=== PATIENT | male | born 1950 | race Caucasian/White ===

== ENCOUNTER 2018-05-30 01:46 | Outpatient (CLI) | payer OTHER, SELFPAY ==
[2018-05-30 12:38] LABS: Anion Gap 2.2 mmol/L (3-11); BUN 17 mg/dL (7-18); CO2 30.8 mmol/L (21.0-32.0); CREATININE 0.79 mg/dL (0.70-1.30); Calcium 8.8 mg/dL (8.5-10.1); Chloride 102 mmol/L (98-107); Glucose 148 mg/dL (70-100); Potassium 4.8 mmol/L (3.5-5.1); Sodium 135 mmol/L (136-145)
[2018-05-30 12:58] LABS: Hemoglobin A1C 7.1 % (4.5-6.2)
== END 2018-05-30 02:06 ==
PROVIDERS: PCP Family Medicine; Visit Provider Family Medicine
DX: E11.9 Type 2 diabetes mellitus without complications (principal); I10 Essential (primary) hypertension
CPT/HCPCS: 36415; 80048; 83036

== ENCOUNTER 2018-08-27 01:25 | Outpatient (CLI) | payer OTHER, SELFPAY ==
[2018-08-27 12:03] LABS: Hemoglobin A1C 7.1 % (4.5-6.2)
== END 2018-08-27 01:45 ==
PROVIDERS: PCP Family Medicine; Visit Provider Family Medicine
DX: E11.9 Type 2 diabetes mellitus without complications (principal)
CPT/HCPCS: 36415; 83036

== ENCOUNTER 2018-12-03 03:03 | Outpatient (CLI) | payer OTHER, SELFPAY ==
[2018-12-03 12:07] LABS: Hemoglobin A1C 7.4 % (4.5-6.2)
== END 2018-12-03 03:23 ==
PROVIDERS: PCP Family Medicine; Visit Provider Family Medicine
DX: E11.9 Type 2 diabetes mellitus without complications (principal)
CPT/HCPCS: 36415; 83036

== ENCOUNTER 2019-03-08 02:40 | Outpatient (CLI) | payer OTHER, SELFPAY ==
[2019-03-08 11:36] LABS: Hemoglobin A1C 6.9 % (4.5-6.2)
== END 2019-03-08 03:00 ==
PROVIDERS: PCP Family Medicine; Visit Provider Family Medicine
DX: E11.9 Type 2 diabetes mellitus without complications (principal)
CPT/HCPCS: 36415; 83036

== ENCOUNTER 2019-06-14 01:54 | Outpatient (CLI) | payer OTHER, SELFPAY ==
[2019-06-14 13:02] LABS: Hemoglobin A1C 6.8 % (4.5-6.2)
[2019-06-14 13:04] LABS: Calculated LDL 76 mg/dL; Cholesterol 162 mg/dL (50-200); HDL Cholesterol 64 mg/dL (40-60); Triglyceride 110 mg/dL (30-150)
== END 2019-06-14 02:14 ==
PROVIDERS: PCP Family Medicine; Visit Provider Family Medicine
DX: E11.9 Type 2 diabetes mellitus without complications (principal)
CPT/HCPCS: 36415; 80061; 83036

== ENCOUNTER 2019-09-28 01:03 | Outpatient (CLI) | payer OTHER, SELFPAY ==
[2019-09-28 10:30] LABS: Anion Gap 10.4 mmol/L (3-11); BUN 14 mg/dL (7-18); CO2 28.6 mmol/L (21.0-32.0); CREATININE 0.75 mg/dL (0.70-1.30); Calcium 8.9 mg/dL (8.5-10.1); Chloride 102 mmol/L (98-107); Glucose 173 mg/dL (74-106); Potassium 4.3 mmol/L (3.5-5.1); Sodium 141 mmol/L (136-145)
[2019-09-29 08:14] LABS: Hemoglobin A1C 7.1 % (3.8-5.6)
== END 2019-09-28 01:23 ==
PROVIDERS: PCP Family Medicine; Visit Provider Family Medicine
DX: E11.9 Type 2 diabetes mellitus without complications (principal); I10 Essential (primary) hypertension
CPT/HCPCS: 36415; 80048; 83036

== ENCOUNTER 2020-04-01 03:25 | Outpatient (CLI) | payer OTHER, SELFPAY ==
[2020-04-01 12:53] LABS: ALT 53 U/L (16-63); AST 29 U/L (15-37); Albumin 4.1 g/dL (3.4-5.0); Alkaline Phosphatase 91 U/L (46-116); Bilirubin, Direct 0.19 mg/dL (0.00-0.20); Bilirubin, Total 0.7 mg/dL (0.2-1.0)
[2020-04-01 12:58] LABS: Hemoglobin A1C 7.9 % (3.8-5.6)
== END 2020-04-01 03:45 ==
PROVIDERS: PCP Family Medicine; Visit Provider Family Medicine
DX: E11.9 Type 2 diabetes mellitus without complications (principal); K76.0 Fatty (change of) liver, not elsewhere classified
CPT/HCPCS: 36415; 80076; 83036

== ENCOUNTER 2020-04-10 03:49 | Outpatient (CLI) | payer OTHER, SELFPAY ==
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
== END 2020-04-10 04:09 ==
PROVIDERS: PCP Family Medicine; Visit Provider Family Medicine
DX: S06.9X9A Unspecified intracranial injury with loss of consciousness of unspecified duration, initial encounter (principal); W13.2XXA Fall from, out of or through roof, initial encounter
CPT/HCPCS: 70450; 70480

== ENCOUNTER 2021-03-19 02:27 | Outpatient (CLI) | payer OTHER, SELFPAY ==
[2021-03-19 12:39] LABS: HCT 40.2 % (40.0-50.0); HGB 13.6 g/dL (13.5-17.5); MCH 32.1 pg (27.0-33.0); MCHC 33.8 % (32.0-36.0); MCV 94.8 fL (80-95); MPV 10.6 fL (8.0-11.0); Platelet Count 172 10^3/uL (130-400); RBC 4.24 10^6/uL (4.36-5.78); RDW-SD 44.9 fL; WBC 4.35 10^3/uL (4.4-10.8)
[2021-03-19 13:00] LABS: Calculated LDL 114 mg/dL (<100); Cholesterol 181 mg/dL (<200); HDL Cholesterol 56 mg/dL (40-60); Triglyceride 55 mg/dL (<150)
== END 2021-03-19 02:28 | disposition home or self-care (01) ==
LOC: LOS 02:27
PROVIDERS: PCP Nurse Practitioner Family; Visit Provider Nurse Practitioner Family
DX: E78.5 Hyperlipidemia, unspecified (principal); R53.83 Other fatigue
CPT/HCPCS: 36415; 80061; 85027

== ENCOUNTER 2021-12-13 09:01 | Day surgery (SDC) | payer OTHER, SELFPAY ==
[2021-12-13 09:20] VITALS: BP 128/78; PULSE 64; RESP 16; TEMP 36.6; O2SAT 97
[2021-12-13] MEDS: Tropicam./Phenyleph. (1/2.5%) 5 ML BTL OS ×3 (09:38→09:48)
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
[2021-12-13 10:25] VITALS: BMI 30.7
[2021-12-13] MEDS: Midazolam/Ketamine/Ondansetron (3/25/2MG) 1 TAB 1 EACH SL (10:25)
[2021-12-13] MEDS: Lidocaine 2% Jelly 6 ML SYR (10:26)
[2021-12-13] MEDS: Tetracaine 0.5% 4 ML BTL OS (10:34)
[2021-12-13] MEDS: Duovisc Viscoelastic System EACH 1 EACH (10:35)
[2021-12-13] MEDS: Balanced Salt Soln.-PLUS 500 ML BAG (10:35)
[2021-12-13] MEDS: Povidone-Iodine Ophth 30 ML BTL (10:37)
[2021-12-13 10:49] VITALS: BP 109/70; PULSE 66; RESP 16; TEMP 36.2; O2SAT 95
--- NOTE | 2021-12-13 10:51 | W.PM.DSUDISC ---
Discharge Plan Disposition Patient Disposition: HOME Condition: Good Discharge Details Attending Provider: Ankit Leroy Primary Care Provider: Moustapha Babcock Home Meds and New Rx's Prescriptions: No Action fluocinonide 0.05 % cream 1 applic TP BID Qty: 60 3RF Rx Instructions: Apply to rash on legs and hands lisinopril 10 mg tablet 5 mg PO DAILY Qty: 90 4RF Januvia 100 mg tablet 100 mg PO DAILY Qty: 90 4RF ibuprofen 400 mg tablet 800 mg PO Q6H PRN Qty: 330 4RF triamcinolone acetonide 0.1 % ointment 1 applic TP BID Qty: 80 3RF Rx Instructions: Apply to hands (DME) FreeStyle Lite Strips Strip See Dose Instructions .ROUTE .MEDSUPPLY Qty: 200 4RF Dose Instruction: As directed Rx Instructions: Test TID doxazosin 4 mg tablet 4 mg PO DAILY Qty: 90 4RF tramadol 50 mg tablet 50 mg PO QID PRN MDD 4 tabs Qty: 90 5RF Discharge Instructions Stand Alone Forms: Post-op Topical Cataract, Antonia Ganey (DSU) Discharge Orders Discharge Orders: Discharge Order (Routine); Ordered 12/13/21 Ordered By: Ankit Leroy DS: Diagnosis Discharge Diagnosis (1) Cortical cataract of left eye: Status: Resolved (2) Nuclear sclerotic cataract of left eye: Status: Resolved
--- NOTE | 2021-12-13 10:52 | W.PM.OP ---
Date of service: 12/13/21 Time of Service: 10:52 Operative Note Operative Note DATE OF PROCEDURE: 12/13/21 PRE-OP DIAGNOSIS: Nuclear/cortical cataract, left eye POST-OP DIAGNOSIS: same PROCEDURE: Cataract extraction using phacoemulsification with intraocular lens implant, right eye SURGEON: Ankit Leroy ANESTHESIA TYPE: Local By Surgeon and MAC Refer to Anesthesia Record ESTIMATED BLOOD LOSS: 0 PATHOLOGY: none sent COMPLICATIONS: None Patient was transported to: same day Patient's condition: stable Implants: Damon & Damon/RUPAL Tecnis [id number] Indications: Progressive visual loss due to cataract, right eye Procedure Description: CATARACT SURGERY OPERATIVE REPORT PREOPERATIVE DIAGNOSIS: 1. Nuclear/cortical cataract, left eye POSTOPERATIVE DIAGNOSIS: Same OPERATION: 1. Cataract extraction using phacoemulsification with posterior chamber intraocular lens implant, right eye. IOL: IOL Building Insulation Supervisor/Model: Damon & Damon / RUPAL Tecnis [id number] IOL Power: + 19.0 diopters IOL Serial Number: [id number] Optic Diameter: 6.0mm Haptic/Overall Diameter: 13.0mm PHACO INFO: Kris Acutus Medicalurion Vision System with OZil and Active Fluidics Cumulative Dispersed Energy (CDE): 6.90 seconds SURGEON: Ankit Leroy MD, LILLY ANESTHESIA: Monitored Anesthesia Care (MAC), with local sub-tenon's anesthetic infiltration COMPLICATIONS: None SPECIMENS: None INDICATIONS FOR PROCEDURE: The patient is a 71-year-old gentleman with history of diminished visual acuity in his left eye secondary to the development of nuclear and cortical cataract. He is significantly symptomatic that he desires cataract surgery and attempt to improve and maximize his vision. The option of cataract surgery was offered to the patient and he wished to proceed. PROCEDURE: The correct surgical eye was identified and marked as the right eye and the pupil was dilated in the preoperative area using mydriatics and cycloplegics. The dilated pupil size was 6.5 mm. Oral sedation was administered in the form of an Imprimis MKO Melt (midazolam 3mg/ketamine 25mg/ondansetron 2mg). The patient was brought to the operating room where cardiopulmonary monitoring was instituted and surgical time-out was performed, confirming the correct operative eye and IOL power. Topical anesthesia was administered and ophthalmic povidone-iodine 5% was instilled into the conjunctival fornices. Lidocaine gel was applied to the cornea and the bassam-ocular area was prepped with Betadine 10% solution and draped in the usual sterile fashion for intraocular surgery, including an aperture drape. A Tegaderm transparent film dressing was cut in half and used to cover the lashes and lid margins. Care was taken to sequester the lashes and lid margins under the Tegaderm dressing. A lid speculum was placed between the lids of the operative eye and the Kris LuxOR Revalia operating microscope was maneuvered into position. Balwinder scissors were then used to make a conjunctival buttonhole approximately 6mm posterior to the limbus in the inferonasal quadrant. Blunt dissection was carried out to expose bare sclera, and a blunt-tipped sub-tenon?s anesthesia cannula was introduced and passed posteriorly along the globe where non-preserved plain lidocaine was injected into posterior sub-Tenon?s space. A sideport knife was used to make a paracentesis port inferotemporally. Intraocular phenylephrine/lidocaine was injected into the anterior chamber. The anterior chamber was filled with viscoelastic. A 2.4mm keratome knife was used to create a half-thickness groove at the limbus and then to construct a three-plane near-clear corneal tunnel extending 2.0mm into clear cornea superiortemporally. A flap was raised on the anterior capsule and capsulorhexis forceps were used to complete a continuous curvilinear capsulorhexis of 5.0 mm. Balanced salt solution was then used to perform cortical cleaving hydrodissection and nuclear hydrodelineation until the lens could be freely rotated within the capsular bag. The lens nucleus was then disassembled and removed within the capsular bag and iris plane using phacoemulsification. Residual cortical material was removed using the I/A handpiece. The posterior capsule was carefully polished to remove as much residual lens epithelial cells as safely possible. The capsular bag was then inflated and the anterior chamber deepened with viscoelastic. The lens implant described above was inserted into the capsular bag using the RUPAL Mcrae Injector. A Kuglen hook was used to dial the IOL into position. Residual viscoelastic was then removed first from posterior to the IOL, then from the anterior chamber using the I/A handpiece. The lens implant was noted to center nicely within the capsular bag. The incisions were stromally hydrated, and the anterior chamber was reformed using BSS. Then 0.5cc of moxifloxacin 1.0mg/ml were injected into the capsular bag and anterior chamber. The incisions were checked with a Weck spear and found to be secure. Several drops of ophthalmic povidone-iodine 5% were then applied to the eye followed by two drops of Imprimis combination prednisolone/moxifloxacin/nepafenac solution. The drapes were removed and a clear plastic protective eye shield was placed over the eye. The patient was then returned to Same Day Surgery in stable condition.
--- NOTE | 2021-12-13 11:13 | W.ANESPOSTOP ---
Postoperative Evaluation Date, Time and Location Date Performed: 12/13/21 Time Performed: 11:14 Patient Location: Day Surgery Unit Vital Signs Most Recent Imported Vital Signs: Most Recent Vital Signs Temp Pulse Resp BP Pulse Ox 36.2 C L 66 16 109/70 95 12/13/21 10:49 12/13/21 10:49 12/13/21 10:49 12/13/21 10:49 12/13/21 10:49 Pain Score Most Recent Pain Score: Most Recent Pain Score Pain Level 0 12/13/21 10:49 Assessment Mental Status: Awake (Alert & Oriented to Patient Baseline) Airway and Respiratory Function: Patent airway with normal (patient baseline) respiratory exam Cardiovascular Function: Hemodynamically Stable Hydration Status: Adequately Hydrated Nausea & Vomiting: No Nausea or Vomiting Pain: Pt. Denies Any Pain Peripheral Nerve Block: Patient did not receive a nerve block
[2021-12-13 11:21] VITALS: BP 136/79; PULSE 71; RESP 18; TEMP 36.3; O2SAT 96
== END 2021-12-13 11:24 | disposition home or self-care (01) ==
PROVIDERS: PCP Nurse Practitioner Family; Visit Provider Ophthalmology
PROC: (CPT 66984; principal; 2021-12-13 11:30)
DX: H25.12 Age-related nuclear cataract, left eye (principal); E11.9 Type 2 diabetes mellitus without complications; K76.0 Fatty (change of) liver, not elsewhere classified; I10 Essential (primary) hypertension; E78.5 Hyperlipidemia, unspecified
CPT/HCPCS: 66984; V2632

== ENCOUNTER 2021-12-27 07:19 | Day surgery (SDC) | payer OTHER, SELFPAY ==
[2021-12-27] MEDS: Tropicam./Phenyleph. (1/2.5%) 5 ML BTL OD ×3 (07:49→08:00)
[2021-12-27 07:52] VITALS: BP 122/73; PULSE 55; RESP 16; TEMP 36.5; O2SAT 98
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
[2021-12-27 08:21] VITALS: BMI 31.1
[2021-12-27] MEDS: Balanced Salt Soln.-PLUS 500 ML BAG (09:10)
[2021-12-27] MEDS: Tetracaine 0.5% 4 ML BTL OD (09:10)
[2021-12-27] MEDS: Duovisc Viscoelastic System EACH 1 EACH (09:16)
[2021-12-27] MEDS: Lidocaine 2% Jelly 6 ML SYR (09:18)
[2021-12-27] MEDS: Povidone-Iodine Ophth 30 ML BTL (09:21)
[2021-12-27 09:32] VITALS: BP 121/73; PULSE 55; RESP 16; TEMP 36.7; O2SAT 95
--- NOTE | 2021-12-27 09:32 | W.PM.DSUDISC ---
Discharge Plan Disposition Patient Disposition: HOME Condition: Good Discharge Details Attending Provider: Ankit Leroy Primary Care Provider: Moustapha Babcock Home Meds and New Rx's Prescriptions: No Action fluocinonide 0.05 % cream 1 applic TP BID Qty: 60 3RF Rx Instructions: Apply to rash on legs and hands lisinopril 10 mg tablet 5 mg PO DAILY Qty: 90 4RF Januvia 100 mg tablet 100 mg PO DAILY Qty: 90 4RF ibuprofen 400 mg tablet 800 mg PO Q6H PRN Qty: 330 4RF triamcinolone acetonide 0.1 % ointment 1 applic TP BID Qty: 80 3RF Rx Instructions: Apply to hands (DME) FreeStyle Lite Strips Strip See Dose Instructions .ROUTE .MEDSUPPLY Qty: 200 4RF Dose Instruction: As directed Rx Instructions: Test TID doxazosin 4 mg tablet 4 mg PO DAILY Qty: 90 4RF tramadol 50 mg tablet 50 mg PO QID PRN MDD 4 tabs Qty: 90 5RF Discharge Instructions Stand Alone Forms: Post-op Topical Cataract, Antonia Ganey (DSU) Discharge Orders Discharge Orders: Discharge Order (Routine); Ordered 12/27/21 Ordered By: Ankit Leroy DS: Diagnosis Discharge Diagnosis (1) Cortical cataract of right eye: Status: Resolved (2) Nuclear sclerotic cataract of right eye: Status: Resolved
--- NOTE | 2021-12-27 09:34 | W.PM.OP ---
Date of service: 12/27/21 Time of Service: 09:34 Operative Note Operative Note DATE OF PROCEDURE: 12/27/21 PRE-OP DIAGNOSIS: Nuclear/cortical cataract, right eye POST-OP DIAGNOSIS: same PROCEDURE: 1. Cataract extraction by phacoemulsification with intraocular lens implantation, right eye, with pupillary expansion device SURGEON: Ankit Leroy ANESTHESIA TYPE: Local By Surgeon and MAC Refer to Anesthesia Record PATHOLOGY: none sent COMPLICATIONS: None Patient was transported to: same day Patient's condition: stable Implants: [employer] / [employer] Tecnis [id number] Indications: Progressive decreased vision due to cataract, right eye, with poorly dilating pupil Procedure Description: CATARACT SURGERY OPERATIVE REPORT PREOPERATIVE DIAGNOSIS: 1. Nuclear/cortical cataract, right eye 2. Poorly dilating pupil, right eye POSTOPERATIVE DIAGNOSIS: Same OPERATION: 1. Cataract extraction using phacoemulsification with posterior chamber intraocular lens implant, right eye. 2. Pupillary dilation and iris stabilization using Malyugin Ring IOL: IOL Data Integrity Specialist/Model: Damon [employer] Damon / RUPAL Tecnis ZCB00 IOL Power: + 18.5 diopters IOL Serial Number: [id number] Optic Diameter: 6.0mm Haptic/Overall Diameter: 13.0mm PHACO INFO: Kris One97 [employer] Vision System with OZil and Active Fluidics Cumulative Dispersed Energy (CDE): 4.50 seconds SURGEON: Ankit Leroy MD, LILLY ANESTHESIA: Monitored Anesthesia Care (MAC), with local sub-tenon's anesthetic infiltration COMPLICATIONS: None SPECIMENS: None INDICATIONS FOR PROCEDURE: The patient is a 71-year-old gentleman with history of diminished visual acuity in both eyes secondary to development of bilateral nuclear and cortical cataract. He has already undergone cataract surgery in the left eye and is doing well postoperatively. He now presents for cataract surgery in the right eye. PROCEDURE: The correct surgical eye was identified and marked as the right eye and the pupil was dilated in the preoperative area using mydriatics and cycloplegics. The dilated pupil size was 3.5 mm. Oral sedation was administered in the form of an Imprimis MKO Melt (midazolam 3mg/ketamine 25mg/ondansetron 2mg). The patient was brought to the operating room where cardiopulmonary monitoring was instituted and surgical time-out was performed, confirming the correct operative eye and IOL power. Topical anesthesia was administered and ophthalmic povidone-iodine 5% was instilled into the conjunctival fornices. Lidocaine gel was applied to the cornea and the bassam-ocular area was prepped with Betadine 10% solution and draped in the usual sterile fashion for intraocular surgery, including an aperture drape. A Tegaderm transparent film dressing was cut in half and used to cover the lashes and lid margins. Care was taken to sequester the lashes and lid margins under the Tegaderm dressing. A lid speculum was placed between the lids of the operative eye and the Kris Lux[employer] Revalia operating microscope was maneuvered into position. Balwinder scissors were then used to make a conjunctival buttonhole approximately 6mm posterior to the limbus in the inferonasal quadrant. Blunt dissection was carried out to expose bare sclera, and a blunt-tipped sub-tenon?s anesthesia cannula was introduced and passed posteriorly along the globe where non-preserved plain lidocaine was injected into posterior sub-Tenon?s space. A sideport knife was used to make a paracentesis port inferiortemporally. Intraocular phenylephrine/lidocaine was injected in the anterior chamber. The anterior chamber was filled with viscoelastic. A 2.4mm keratome knife was used to create a half-thickness groove at the limbus and then to construct a three-plane near-clear corneal tunnel extending 2.0mm into clear cornea superiortemporally. A 7.0 mm Malyugin Ring was then inserted into the pupillary space and engaged with the Kuglen hook. A flap was raised on the anterior capsule and capsulorhexis forceps were used to complete a continuous curvilinear capsulorhexis of 5.0 mm. Balanced salt solution was then used to perform cortical cleaving hydrodissection and nuclear hydrodelineation until the lens could be freely rotated within the capsular bag. The lens nucleus was then disassembled and removed within the capsular bag and iris plane using phacoemulsification. Residual cortical material was removed using the 45-degree angled silicone I/A tip with 0.3mm port. The posterior capsule was carefully polished to remove as much residual lens epithelial cells as safely possible. The capsular bag was then inflated and the anterior chamber deepened with viscoelastic. The lens implant described above was inserted into the capsular bag using the RUPAL [place] Injector. A Kuglen hook was used to dial the IOL into position. The Malyugin Ring was removed in the reverse order of its insertion. Residual viscoelastic was then removed first from posterior to the IOL, then from the anterior chamber using the I/A handpiece. The lens implant was noted to center nicely within the capsular bag. The incisions were stromally hydrated, and the anterior chamber was reformed using BSS. Then 0.5cc of moxifloxacin 1.0mg/ml were injected into the capsular bag and anterior chamber. The incisions were checked with a Weck spear and found to be secure. Several drops of ophthalmic povidone-iodine 5% were then applied to the eye followed by two drops of Imprimis combination prednisolone/moxifloxacin/nepafenac solution. The drapes were removed and a clear plastic protective eye shield was placed over the eye. The patient was then returned to Same Day Surgery in stable condition.
--- NOTE | 2021-12-27 09:43 | W.ANESPOSTOP ---
Postoperative Evaluation Date, Time and Location Date Performed: 12/27/21 Time Performed: 09:35 Patient Location: Day Surgery Unit Vital Signs Most Recent Imported Vital Signs: Most Recent Vital Signs Temp Pulse Resp BP Pulse Ox 36.7 C 55 L 16 121/73 95 12/27/21 09:32 12/27/21 09:32 12/27/21 09:32 12/27/21 09:32 12/27/21 09:32 Pain Score Most Recent Pain Score: Most Recent Pain Score Pain Level 0 12/27/21 09:32 Assessment Mental Status: Awake (Alert & Oriented to Patient Baseline) Airway and Respiratory Function: Patent airway with normal (patient baseline) respiratory exam Cardiovascular Function: Hemodynamically Stable Hydration Status: Adequately Hydrated Nausea & Vomiting: No Nausea or Vomiting Pain: Pt. Denies Any Pain Peripheral Nerve Block: Patient did not receive a nerve block
[2021-12-27 10:07] VITALS: BP 123/65; PULSE 62; RESP 16; TEMP 36.8; O2SAT 93
== END 2021-12-27 10:17 | disposition home or self-care (01) ==
PROVIDERS: PCP Nurse Practitioner Family; Visit Provider Ophthalmology
PROC: (CPT 66982; principal; 2021-12-27 09:00)
DX: H25.11 Age-related nuclear cataract, right eye (principal); H57.03 Miosis; E78.5 Hyperlipidemia, unspecified; E11.9 Type 2 diabetes mellitus without complications; K76.0 Fatty (change of) liver, not elsewhere classified
CPT/HCPCS: 66982; V2632

== ENCOUNTER 2022-05-25 02:40 | Outpatient (CLI) | payer OTHER, SELFPAY ==
[2022-05-25 12:57] LABS: Anion Gap 7.8 mmol/L (3-11); BUN 22 mg/dL (7-18); CO2 28.2 mmol/L (21.0-32.0); Calcium 8.7 mg/dL (8.5-10.1); Chloride 102 mmol/L (98-107); Estimated GFR 79.47 (mL/min/1.73m2); Glucose 187 mg/dL (74-106); Potassium 4.4 mmol/L (3.5-5.1); Sodium 138 mmol/L (136-145)
[2022-05-25 12:59] LABS: Hemoglobin A1C 7.9 % (<5.7)
== END 2022-05-25 02:41 | disposition home or self-care (01) ==
LOC: LOS 02:41
PROVIDERS: PCP Nurse Practitioner Family; Visit Provider Nurse Practitioner Family
DX: E11.9 Type 2 diabetes mellitus without complications (principal); I10 Essential (primary) hypertension
CPT/HCPCS: 36415; 80048; 83036

== ENCOUNTER → 2022-06-13 12:46 | Outpatient (CLI) | payer OTHER, SELFPAY ==
--- NOTE | 2022-06-13 12:00 | DI.MRI_ITS ---
Exam(s) MR UPPER JOINT RT WO EXAM: MR UPPER JOINT RT WO CLINICAL HISTORY: evaluate bicep tendon, traumatic [id number]. TECHNIQUE: Multiplanar multisequence MRI was performed. COMPARISON: None. FINDINGS: Bones: There is no fracture or contusion pattern. Biceps tendon: Intact. Fluid is noted extending along the biceps tendon. Brachialis tendon: Intact Common flexor tendons: Intact Common extensor tendons: Intact Soft tissues: Severe edema in the soft tissues around the elbow, greater posteriorly. IMPRESSION: Intact distal biceps tendon. Severe soft tissue edema. DATA REPOSITORY:
--- NOTE | 2022-06-13 12:08 | DI.MRI_ITS ---
Exam(s) MR UPPER JOINT RT WO EXAM: MR UPPER JOINT RT WO CLINICAL HISTORY: evaluate bicep tendon, traumatic [id number]. TECHNIQUE: Multiplanar multisequence MRI was performed. COMPARISON: None. FINDINGS: There is no fracture or contusion pattern. There is a humeral head prosthesis creating artifact. The acromioclavicular joint shows mild spurring. No subacromial, subcoracoid or glenohumeral joint effusion is present. The supraspinatus tendon The infraspinatus tendon is partially obscured by artifact but appears intact. The subscapularis and teres minor tendons are normal. The biceps tendon is torn proximally and retracted and not visualized until the distal images. Ther e is abnormal signal in the upper biceps muscle, partially visualized which may represent a hematoma. . The short head of the biceps tendon coracobrachialis appear intact. Muscles: Mild atrophy of the infraspinatus and teres minor muscles. There is edema in the subcutaneous fat. IMPRESSION: Artifact secondary to shoulder prosthesis. Full-thickness tear with retraction of the long head of t he biceps tendon with muscle edema versus hematoma seen the upper portion of the muscle. DATA REPOSITORY:
== END ==
PROVIDERS: PCP Nurse Practitioner Family; Visit Provider Nurse Practitioner Family
DX: S46.291A Other injury of muscle, fascia and tendon of other parts of biceps, right arm, initial encounter; Z96.611 Presence of right artificial shoulder joint; M62.511 Muscle wasting and atrophy, not elsewhere classified, right shoulder; R60.0 Localized edema
CPT/HCPCS: 73221

== ENCOUNTER 2022-06-15 14:21 | Outpatient (CLI) | payer OTHER, SELFPAY ==
--- NOTE | 2022-06-15 14:00 | DI.RAD_ITS ---
Exam(s) XR SHOULDER RT COMPLETE 2+V EXAM: XR SHOULDER RT COMPLETE 2+V CLINICAL HISTORY: bicep injury f/u. TECHNIQUE: 2D digital imaging was performed. COMPARISON: CR RIGHT SHOULDER COMPLETE from 03/06/2014 FINDINGS: Two views: Stable position alignment of the prosthesis. No fracture or loosening evident. No radiographic evid ence of osteomyelitis. IMPRESSION: DATA REPOSITORY: RADIATION DOSE DELIVERED:
== END 2022-06-15 14:22 | disposition home or self-care (01) ==
LOC: DIORS 14:21
PROVIDERS: PCP Nurse Practitioner Family; Referring Provider Nurse Practitioner Family; Visit Provider Student in an Organized Health Care Education/Training Program
DX: S46.291D Other injury of muscle, fascia and tendon of other parts of biceps, right arm, subsequent encounter; Z96.611 Presence of right artificial shoulder joint
CPT/HCPCS: 73030

== ENCOUNTER 2022-12-12 15:18 | Outpatient (REF) | payer OTHER, SELFPAY ==
[2022-12-12 21:51] LABS: COMMENT (LAB VIEW ONLY) 123.96 mg/dL
== END 2022-12-12 15:19 | disposition home or self-care (01) ==
LOC: NCHCN 15:18
PROVIDERS: PCP Nurse Practitioner Family; Visit Provider Nurse Practitioner Family
DX: E11.9 Type 2 diabetes mellitus without complications (principal)
CPT/HCPCS: 82043; 82570

== ENCOUNTER 2023-05-05 02:40 | Outpatient (CLI) | payer OTHER, SELFPAY ==
[2023-05-05 12:03] LABS: CREATININE 0.9 mg/dL (0.70-1.30); Calculated LDL 109 mg/dL (<100); Cholesterol 167 mg/dL (<200); Estimated GFR 89.62 (mL/min/1.73m2); HDL Cholesterol 51 mg/dL (40-60); Triglyceride 38 mg/dL (<150)
== END 2023-05-05 02:41 | disposition home or self-care (01) ==
PROVIDERS: PCP Nurse Practitioner Family; Visit Provider Nurse Practitioner Family
DX: I10 Essential (primary) hypertension (principal); E78.5 Hyperlipidemia, unspecified
CPT/HCPCS: 36415; 80061; 82565; 84132

== ENCOUNTER 2023-08-25 01:34 | Outpatient (CLI) | payer OTHER, SELFPAY ==
[2023-08-25 21:25] LABS: PSA, Screening 3.3 ng/mL (<=6.5)
== END 2023-08-25 01:35 | disposition home or self-care (01) ==
LOC: LOS 01:34
PROVIDERS: PCP Nurse Practitioner Family; Visit Provider Nurse Practitioner Family
DX: N40.0 Benign prostatic hyperplasia without lower urinary tract symptoms (principal)
CPT/HCPCS: 36415; 84153

== ENCOUNTER 2024-11-18 01:32 | Outpatient (CLI) | payer OTHER, SELFPAY ==
--- NOTE | 2024-11-18 06:45 | DI.RAD_ITS ---
Exam(s) XR KNEE RT 3V AP,LAT,NIKOLAY EXAM: XR KNEE RT 3V AP,LAT,NIKOLAY CLINICAL HISTORY: Worsening pain, rt knee, m25.561. TECHNIQUE: 2D digital imaging was performed. Three views. COMPARISON: CR XR KNEE LT 3V AP,LAT,NIKOLAY from 11/18/2024 FINDINGS: BONES: No acute fracture is present. No bony destructive lesion is seen. JOINTS: Severe narrowing of the medial femoral tibial joint space, with a hiwh-ye-hhrc appearance. P eriarticular spurring throughout.. Mild valgus angulation. Compensatory widening of the lateral fem oral tibial joint. Degenerative changes also present at the patellofemoral joint. No joint effusion is seen. SOFT TISSUE: Normal. IMPRESSION: Severe degenerative changes of the medial femoral tibial joint. DATA REPOSITORY: RADIATION DOSE DELIVERED:
--- NOTE | 2024-11-18 06:45 | DI.RAD_ITS ---
Exam(s) XR SHOULDER LT COMPLETE 2+V EXAM: XR SHOULDER LT COMPLETE 2+V CLINICAL HISTORY: Worsening pain lt shoulder, m25.512. TECHNIQUE: 2D digital imaging was performed. Three views. COMPARISON: None FINDINGS: BONES: No acute fracture is present. No bony destructive lesion is seen. JOINTS: No dislocation present. Severe narrowing of the glenohumeral joint space with a uioj-ch-[id number] appearance. Periarticular sclerosis and prominent spurring, greatest inferiorly. Some bony fragmen tation. Flattening of the humeral head and remodeling of the glenoid. The AC joint is unremarkable. SOFT TISSUE: Normal. 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 DATA REPOSITORY: RADIATION DOSE DELIVERED:
--- NOTE | 2024-11-18 06:45 | DI.RAD_ITS ---
Exam(s) XR KNEE LT 3V AP,LAT,NIKOLAY EXAM: XR KNEE LT 3V AP,LAT,NIKOLAY CLINICAL HISTORY: Worsening pain lt knee, m25.562. TECHNIQUE: 2D digital imaging was performed. Three views. COMPARISON: No exams were available for comparison FINDINGS: BONES: No acute fracture is present. No bony destructive lesion is seen. JOINTS: Severe narrowing of the medial femoral tibial joint space with a fmmn-le-pyzz appearance. Th is causes varus angulation. There is prominent periarticular spurring throughout. A joint effusion is seen. SOFT TISSUE: Normal. IMPRESSION: Severe degenerative changes of the medial femoral tibial joint. DATA REPOSITORY: RADIATION DOSE DELIVERED:
== END 2024-11-18 01:52 ==
LOC: DI 01:33
PROVIDERS: PCP Nurse Practitioner Family; Visit Provider Nurse Practitioner Family
DX: M19.012 Primary osteoarthritis, left shoulder (principal); M17.0 Bilateral primary osteoarthritis of knee
CPT/HCPCS: 73562; 73030

== ENCOUNTER 2025-02-12 02:13 | Outpatient (CLI) | payer OTHER, SELFPAY ==
--- NOTE | 2025-02-12 09:31 | DI.RAD_ITS ---
Exam(s) RF JOINT INJ. FLUORO GUID RAD EXAM: RF JOINT INJ. FLUORO GUID RAD CLINICAL HISTORY: L SHOULDER PAIN,fluoro guided injection,primary oa lt shoulder,m19.012. The Patie nt has had persistent left shoulder pain. Noninvasive measures have been tried. To serve as both di agnostic and therapeutic, an injection under fluoroscopy was recommended. The risks of the procedure were discussed with their Orthopedic provider and the patient elected to proceed. TECHNIQUE: 2D and realtime digital imaging was performed. CONTRAST MATERIAL: Water soluble contrast was utilized. COMPARISON: No exams were available for comparison FINDINGS: The Patient was greeted in the fluoroscopy room. The correct side was identified and the consent was reviewed with the patient and was signed. The patient was properly positioned on the fluoroscopy ta ble. The left shoulderwas then prepped and draped. The left shoulder injection starting point was i dentified by the bony landmarks and fluoroscopy. The skin and soft tissue in the tract of the inject ion was anesthetized with 1% Bupivacaine. A spinal needle was then inserted into the left shoulder j oint at the level of the glenohumeral joint under fluoroscopic guidance. A small amount of Omnipaque solution was injected to confirm intraarticular placement. Once confirmed, the left shoulder was in jected with 5cc of a solution containing 0.5% Bupivacaiine and 40 mg of Depo-Medrol. A bandaid was p laced on the injection site. The patient tolerated the procedure well and left the department in goo d condition. IMPRESSION: Successful left shoulder injection. RADIATION DOSE DELIVERED: Ka,r=2.57 mGy
[2025-02-12] MEDS: Bupivacaine 0.5% Pres-Free 10 ML VIAL IJ (10:12)
== END 2025-02-12 02:33 ==
LOC: DI 02:13
PROVIDERS: PCP Nurse Practitioner Family; Visit Provider Student in an Organized Health Care Education/Training Program
DX: M19.012 Primary osteoarthritis, left shoulder (principal)
CPT/HCPCS: 20610; 77002; J0665; J1010

== ENCOUNTER 2025-06-18 04:09 | Outpatient (CLI) | payer OTHER, SELFPAY ==
[2025-06-18 14:23] LABS: Anion Gap 8.4 mmol/L (3-11); BUN 26 mg/dL (7-18); CO2 27.6 mmol/L (21.0-32.0); Calcium 8.8 mg/dL (8.5-10.1); Calculated LDL 62 mg/dL (<100); Chloride 102 mmol/L (98-107); Cholesterol 139 mg/dL (<200); Estimated GFR 69.57 (mL/min/1.73m2); Glucose 143 mg/dL (74-106); HDL Cholesterol 63 mg/dL (>or=40); Potassium 3.6 mmol/L (3.5-5.1); Sodium 138 mmol/L (136-145); Triglyceride 71 mg/dL (<150)
[2025-06-18 22:25] LABS: PSA, Screening 4.1 ng/mL (<=6.5)
== END 2025-06-18 04:10 | disposition home or self-care (01) ==
LOC: LOS 04:09
PROVIDERS: PCP Nurse Practitioner Family; Visit Provider Nurse Practitioner Family
DX: Z13.220 Encounter for screening for lipoid disorders (principal); Z12.5 Encounter for screening for malignant neoplasm of prostate; N40.0 Benign prostatic hyperplasia without lower urinary tract symptoms; I10 Essential (primary) hypertension
CPT/HCPCS: 36415; 80048; 80061; 84153